=== PATIENT | male | born 1960 | race Caucasian/White ===

== ENCOUNTER 2021-12-20 16:36 | Inpatient (IN) | payer SELFPAY ==
[2021-12-20 18:43] LABS: BASO % 0.4 % (0-2.0); EOS % 0.4 % (0-4.5); HEMATOCRIT 44.7 % (35.4-49); HEMOGLOBIN 15.3 GM/dL (11.7-16.9); LYMPH % 9.5 % (8-40); MCHC 34.2 g/dl (32.0-35.9); MEAN CELL VOLUME 93.6 fl (80-96); MEAN PLT VOLUME 9.2 fl (7.5-11.1); MONO % 5.5 % (3.8-10.2); NEUT % 84.2 % (42.8-82.8); PLATELET COUNT 247 10^3/uL (134-434); RBC 4.78 M/mm3 (4.00-5.60); RDW 13.5 % (11.9-15.9); WHITE BLOOD COUNT 13.5 K/mm3 (4.0-10.0)
[2021-12-20 18:51] LABS: CHLORIDE 108 mmol/L (98-107); SODIUM 139 mmol/L (136-145)
[2021-12-20 18:52] LABS: CALCIUM 9.4 mg/dL (8.5-10.1)
[2021-12-20 18:53] LABS: ALBUMIN 3.9 g/dl (3.4-5.0); ANION GAP 5 MMOL/L (8-16); BLOOD UREA NITROGEN 10.9 mg/dL (7-18); CO2 26 mmol/L (21-32); GLUCOSE,RANDOM 217 mg/dL (74-106)
[2021-12-20 18:56] LABS: CREATININE 0.8 mg/dL (0.55-1.3); SGOT/AST 17 U/L (15-37); SGPT/ALT 29 U/L (13-61)
[2021-12-20 18:58] LABS: BILIRUBIN,TOTAL 0.3 mg/dL (0.2-1); TOT PROT 7.8 g/dl (6.4-8.2)
[2021-12-20 18:59] LABS: ALK PHOS 111 U/L (45-117)
[2021-12-20 21:45] LABS: CHOLESTEROL 162 mg/dL (50-200)
[2021-12-20 21:46] LABS: TRIGLYCERIDES 300 mg/dL (0-150)
[2021-12-20 21:47] LABS: LDL CHOLESTEROL (ONLY SJRH) 80 mg/dL (5-100)
[2021-12-20 21:49] LABS: HDL CHOLESTEROL 38 mg/dL (40-60)
[2021-12-20] MEDS ORDERED: ACETAMINOPHEN 1000 MG/100 ML BAG IVPB PRN (22:04)
[2021-12-21 05:00] VITALS: PULSE 78; BMI 29.1
[2021-12-21 09:08] LABS: BASO % 0.4 % (0-2.0); EOS % 0.4 % (0-4.5); HEMATOCRIT 42.4 % (35.4-49); HEMOGLOBIN 14.4 GM/dL (11.7-16.9); LYMPH % 21.1 % (8-40); MCH 31.8 pg (25.7-33.7); MCHC 33.9 g/dl (32.0-35.9); MEAN CELL VOLUME 93.6 fl (80-96); MEAN PLT VOLUME 9.6 fl (7.5-11.1); MONO % 10.9 % (3.8-10.2); NEUT % 67.2 % (42.8-82.8); PLATELET COUNT 234 10^3/uL (134-434); RBC 4.52 M/mm3 (4.00-5.60); RDW 13.3 % (11.9-15.9); WHITE BLOOD COUNT 8.5 K/mm3 (4.0-10.0)
[2021-12-21 09:26] LABS: MAGNESIUM 1.6 mg/dL (1.8-2.4)
[2021-12-21 09:27] LABS: BLOOD UREA NITROGEN 7.9 mg/dL (7-18); CALCIUM 8.6 mg/dL (8.5-10.1)
[2021-12-21 09:29] LABS: PHOSPHOROUS 2.7 mg/dL (2.5-4.9)
[2021-12-21 09:30] LABS: CREATININE 0.7 mg/dL (0.55-1.3)
[2021-12-21 09:38] LABS: ACTIVATED PTT 30.5 SECONDS (25.2-36.5); INR 1.11 (0.83-1.09); PROTHROMBIN TIME (PATIENT) 12.8 SEC (9.7-13.0)
[2021-12-21 10:23] VITALS: BP 169/97; TEMP 98.6
== END 2021-12-21 14:28 | disposition home or self-care (01) | DRG 342 ==
LOC: JERFT 16:36 → JERBED 19:29 → J8W 12-21 03:53
PROVIDERS: ADMIT Hospitalist; ATTEND Internal Medicine
DX: S82.242A Displaced spiral fracture of shaft of left tibia, initial encounter for closed fracture (principal); S82.442A Displaced spiral fracture of shaft of left fibula, initial encounter for closed fracture; I10 Essential (primary) hypertension; E11.9 Type 2 diabetes mellitus without complications; D72.829 Elevated white blood cell count, unspecified; W19.XXXA Unspecified fall, initial encounter; Y93.9 Activity, unspecified; Y92.89 Other specified places as the place of occurrence of the external cause; Y99.9 Unspecified external cause status
CPT/HCPCS: 36415; 73590-TC-LT-FY; 73610-TC-LT-FY; 73630-TC-LT; 80048; 80053; 80061; 80307; 83036; 83735; 84100; 84439; 84443; 85025; 85610; 85730; 86850; 86900; 86901; 93005; 93010; 97116-GP; 97162-GP; 99285-25; C9803; U0003; U0005

== ENCOUNTER 2021-12-27 10:04 | Day surgery (SDC) | payer OTHER ==
[2021-12-27 10:23] VITALS: BMI 29.0
[2021-12-27 11:09] LABS: INR 1.13 (0.83-1.09)
[2021-12-27 11:12] LABS: ACTIVATED PTT 30.4 SECONDS (25.2-36.5)
[2021-12-27 11:17] LABS: ALBUMIN 3.6 g/dl (3.4-5.0); BILIRUBIN,TOTAL 0.8 mg/dl (0.2-1); CALCIUM 9.2 mg/dl (8.5-10); CREATININE 0.7 mg/dl (0.55-1.3); MAGNESIUM 1.8 mg/dL (1.8-2.4); TOT PROT 7.8 g/dl (6.4-8.2)
[2021-12-27] MEDS: ENOXAPARIN NA (PORCINE) 40 MG/0.4 ML DISP.SYRIN SQ SCH (13:32)
[2021-12-27 14:27] LABS: BASO % 0.7 % (0-2.0); EOS % 0.9 % (0-4.5); HEMATOCRIT 44.6 % (35.4-49); HEMOGLOBIN 15.1 GM/dL (11.7-16.9); LYMPH % 10.3 % (8-40); MCHC 33.8 g/dl (32.0-35.9); MEAN CELL VOLUME 94.8 fl (80-96); MEAN PLT VOLUME 9.7 fl (7.5-11.1); MONO % 10.7 % (3.8-10.2); NEUT % 77.4 % (42.8-82.8); PLATELET COUNT 356 10^3/uL (134-434); RBC 4.71 M/mm3 (4.00-5.60); RDW 13.3 % (11.9-15.9); WHITE BLOOD COUNT 8.9 K/mm3 (4.0-10.0)
[2021-12-27] MEDS: ACETAMINOPHEN 1000 MG/100 ML BAG IVPB SCH ×2 (14:33→18:54)
[2021-12-27] MEDS: INSULIN (NOVOLOG) ASPART 100 UNITS/ML 10ML VIAL SQ SCH ×2 (16:54→22:18)
[2021-12-27] MEDS: oxyCODONE HCL 5 MG TABLET PO PRN ×2 (16:56→22:19)
[2021-12-28] MEDS: ACETAMINOPHEN 1000 MG/100 ML BAG IVPB SCH ×4 (01:13→19:46)
[2021-12-28] MEDS: INSULIN (NOVOLOG) ASPART 100 UNITS/ML 10ML VIAL SQ SCH ×4 (06:20→21:23)
[2021-12-28] MEDS: oxyCODONE HCL 5 MG TABLET PO PRN ×2 (07:26→23:19)
[2021-12-28 08:16] LABS: CALCIUM 9.3 mg/dl (8.5-10); CREATININE 0.7 mg/dl (0.55-1.3)
[2021-12-28] MEDS: ENOXAPARIN NA (PORCINE) 40 MG/0.4 ML DISP.SYRIN SQ SCH (10:16)
[2021-12-28] MEDS: LISINOPRIL 10 MG TABLET PO SCH (10:16)
[2021-12-28 11:23] LABS: EOS % 2.4 % (0-4.5); HEMATOCRIT 43.2 % (35.4-49); HEMOGLOBIN 14.3 GM/dL (11.7-16.9); MCH 31.6 pg (25.7-33.7); MCHC 33.1 g/dl (32.0-35.9); MEAN CELL VOLUME 95.3 fl (80-96); MEAN PLT VOLUME 9.4 fl (7.5-11.1); MONO % 11.7 % (3.8-10.2); NEUT % 65.9 % (42.8-82.8); PLATELET COUNT 381 10^3/uL (134-434); RBC 4.53 M/mm3 (4.00-5.60); RDW 13.4 % (11.9-15.9); WHITE BLOOD COUNT 9.6 K/mm3 (4.0-10.0)
[2021-12-29] MEDS: ACETAMINOPHEN 1000 MG/100 ML BAG IVPB SCH ×2 (01:13→06:47)
[2021-12-29] MEDS: oxyCODONE HCL 5 MG TABLET PO PRN ×2 (06:01→16:32)
[2021-12-29] MEDS: INSULIN (NOVOLOG) ASPART 100 UNITS/ML 10ML VIAL SQ SCH ×4 (06:46→22:04)
[2021-12-29 08:40] LABS: ALBUMIN 3.5 g/dl (3.4-5.0); BILIRUBIN,TOTAL 0.9 mg/dl (0.2-1); CALCIUM 9.4 mg/dl (8.5-10); CREATININE 0.7 mg/dl (0.55-1.3); MAGNESIUM 1.9 mg/dL (1.8-2.4); PHOSPHOROUS 3.5 mg/dl (2.5-4.9)
[2021-12-29 08:58] LABS: BASO % 1.1 % (0-2.0); EOS % 5.4 % (0-4.5); HEMOGLOBIN 14.2 GM/dL (11.7-16.9); LYMPH % 20.5 % (8-40); MCH 31.7 pg (25.7-33.7); MCHC 33.7 g/dl (32.0-35.9); MEAN PLT VOLUME 8.9 fl (7.5-11.1); MONO % 9.8 % (3.8-10.2); NEUT % 63.2 % (42.8-82.8); PLATELET COUNT 413 10^3/uL (134-434); RBC 4.47 M/mm3 (4.00-5.60); RDW 13.1 % (11.9-15.9); WHITE BLOOD COUNT 9.2 K/mm3 (4.0-10.0)
[2021-12-29] MEDS: LISINOPRIL 10 MG TABLET PO SCH (09:39)
[2021-12-29] MEDS: ENOXAPARIN NA (PORCINE) 40 MG/0.4 ML DISP.SYRIN SQ SCH (09:42)
[2021-12-29] MEDS ORDERED: SENNOSIDES 8.6MG TABLET (FP) PO PRN (10:13)
[2021-12-29] MEDS ORDERED: BISACODYL 5 MG TABLET.DR (FP) PO PRN (10:14)
[2021-12-29] MEDS ORDERED: traMADol HCL 50 MG TABLET PO PRN (10:25)
[2021-12-29] MEDS ORDERED: ACETAMINOPHEN 325 MG TABLET (FP) PO PRN (10:26)
[2021-12-29] MEDS: POLYETHYLENE GLYCOL (HEALTHYLAX) 3350 17 GM PACKET PO SCH (11:40)
[2021-12-29] MEDS: DOCUSATE SODIUM 100 MG CAPSULE (FP) PO SCH ×2 (11:40→21:24)
[2021-12-29] MEDS: traMADol HCL 50 MG TABLET PO PRN (21:29)
[2021-12-30] MEDS ORDERED: DEXTROSE 5%-0.45% SALINE 1,000 ML IV SCH
[2021-12-30] MEDS: INSULIN (NOVOLOG) ASPART 100 UNITS/ML 10ML VIAL SQ SCH ×4 (07:05→21:35)
[2021-12-30 08:38] LABS: ALBUMIN 3.5 g/dl (3.4-5.0); BILIRUBIN,TOTAL 0.7 mg/dl (0.2-1); CALCIUM 9.4 mg/dl (8.5-10); CREATININE 0.8 mg/dl (0.55-1.3); TOT PROT 7.3 g/dl (6.4-8.2)
[2021-12-30] MEDS: POLYETHYLENE GLYCOL (HEALTHYLAX) 3350 17 GM PACKET PO SCH (09:57)
[2021-12-30] MEDS: LISINOPRIL 10 MG TABLET PO SCH (09:57)
[2021-12-30] MEDS: DOCUSATE SODIUM 100 MG CAPSULE (FP) PO SCH ×2 (09:57→21:37)
[2021-12-30] MEDS ORDERED: BUPIVACAINE HCL 50 ML ONE (10:14)
[2021-12-30] MEDS ORDERED: BUPIVACAINE HCL/PF 0.5% (5 MG/ML) 30 ML VIAL IJ ONE (10:21)
[2021-12-30] MEDS ORDERED: PROPOFOL 20 ML ONE ×5 (10:28→14:06)
[2021-12-30] MEDS ORDERED: MIDAZOLAM HCL 2 MG/2 ML SINGLE DOSE VIAL ONE ×3 (10:29→11:35)
[2021-12-30] MEDS ORDERED: fentaNYL CITRATE 250 MCG/5 ML VIAL ONE (11:13)
[2021-12-30] MEDS ORDERED: DEXAMETHASONE SOD PHOSPHATE 4 MG/1 ML VIAL ONE ×2 (11:13→14:15)
[2021-12-30] MEDS ORDERED: ONDANSETRON 4 MG/2 ML VIAL ONE ×2 (11:13→14:15)
[2021-12-30] MEDS ORDERED: ROCURONIUM BROMIDE 50 MG/5 ML SYRINGE ONE (11:13)
[2021-12-30] MEDS ORDERED: ceFAZolin SODIUM 1 GM VIAL IVPB ONE (11:30)
[2021-12-30] MEDS ORDERED: ceFAZolin SODIUM 1 GM VIAL ONE ×2 (11:31→19:34)
[2021-12-30] MEDS ORDERED: LIDOCAINE HCL/PF 2% SDV 5ML VIAL ONE (11:40)
[2021-12-30] MEDS ORDERED: SODIUM CHLORIDE 0.9% P/F 10 ML VIAL IJ ONE (12:03)
[2021-12-30] MEDS ORDERED: KETOROLAC TROMETHAMINE 30 MG/1 ML VIAL ONE (14:15)
[2021-12-30] MEDS ORDERED: BUPIVACAINE HCL/PF 0.25% (2.5MG/ML) 10 ML VIAL ONE (14:23)
[2021-12-30] MEDS ORDERED: HYDROmorphone HCL/PF 1 MG/ML VIAL ONE ×2 (14:28→14:29)
[2021-12-30] MEDS ORDERED: BUPIVACAINE HCL/PF 0.25% (2.5MG/ML) 10 ML VIAL IJ ONE (14:43)
[2021-12-30] MEDS ORDERED: oxyCODONE HCL 5 MG TABLET PO PRN ×6 (15:02→18:42)
[2021-12-30] MEDS ORDERED: ONDANSETRON 4 MG/2 ML VIAL IVPUSH PRN ×2 (15:02→15:20)
[2021-12-30] MEDS ORDERED: ACETAMINOPHEN 1000 MG/100 ML BAG IVPB ONE ×2 (15:03→15:20)
[2021-12-30] MEDS ORDERED: ACETAMINOPHEN 325 MG TABLET (FP) PO SCH (15:15)
[2021-12-30] MEDS ORDERED: KETOROLAC TROMETHAMINE 30 MG/1 ML VIAL IVPUSH SCH (15:15)
[2021-12-30] MEDS ORDERED: LACTATED RINGERS SOLUTION 1,000 ML/1,000 ML INFUS.BAG IV SCH (16:00)
[2021-12-30] MEDS: traMADol HCL 50 MG TABLET PO PRN (17:03)
[2021-12-30] MEDS: ACETAMINOPHEN 1000 MG/100 ML BAG IVPB SCH ×2 (17:06→21:37)
[2021-12-30] MEDS ORDERED: KETOROLAC TROMETHAMINE 30 MG/1 ML VIAL IVPUSH ONE (18:43)
[2021-12-30] MEDS ORDERED: DEXTROSE 5%-WATER - 100 ML IVPB ONE (19:34)
[2021-12-30] MEDS: CEFAZOLIN 2 GM in DEXTROSE 5%-WATER - 100 ML IVPB SCH (19:42)
[2021-12-30] MEDS ORDERED: ceFAZolin 2 GRAM PREMIX BAG IVPB SCH (20:00)
[2021-12-31] MEDS: CEFAZOLIN 2 GM in DEXTROSE 5%-WATER - 100 ML IVPB SCH ×2 (04:13→11:29)
[2021-12-31] MEDS: ACETAMINOPHEN 1000 MG/100 ML BAG IVPB SCH ×2 (04:59→11:25)
[2021-12-31] MEDS: INSULIN (NOVOLOG) ASPART 100 UNITS/ML 10ML VIAL SQ SCH ×4 (06:36→21:40)
[2021-12-31] MEDS ORDERED: DOCUSATE SODIUM 100 MG CAPSULE (FP) PO SCH (07:34)
[2021-12-31 08:13] LABS: ALBUMIN 3.1 g/dl (3.4-5.0); BILIRUBIN,TOTAL 0.7 mg/dl (0.2-1); CREATININE 0.7 mg/dl (0.55-1.3); MAGNESIUM 1.8 mg/dL (1.8-2.4); TOT PROT 6.5 g/dl (6.4-8.2)
[2021-12-31] MEDS ORDERED: oxyCODONE HCL 5 MG TABLET PO PRN (08:32)
[2021-12-31] MEDS: ASPIRIN 325 MG TABLET PO SCH ×2 (09:10→21:35)
[2021-12-31] MEDS: oxyCODONE HCL 5 MG TABLET PO PRN ×3 (09:11→21:37)
[2021-12-31] MEDS: SENNOSIDES/DOCUSATE COMBO (SENNA PLUS) TABLET (UD) PO SCH ×2 (09:11→21:36)
[2021-12-31] MEDS: LISINOPRIL 10 MG TABLET PO SCH (09:11)
[2021-12-31] MEDS: POLYETHYLENE GLYCOL (HEALTHYLAX) 3350 17 GM PACKET PO SCH (09:11)
[2021-12-31] MEDS: KETOROLAC TROMETHAMINE 30 MG/1 ML VIAL IVPUSH SCH (09:17)
[2021-12-31] MEDS ORDERED: LISINOPRIL 10 MG TABLET PO SCH (10:00)
[2021-12-31] MEDS ORDERED: SENNOSIDES 8.6MG TABLET (FP) PO SCH ×2 (10:00→22:00)
[2021-12-31] MEDS ORDERED: DEXTROSE 5%-WATER - 100 ML IVPB ONE (11:07)
[2021-12-31] MEDS ORDERED: ceFAZolin SODIUM 1 GM VIAL ONE (11:08)
[2021-12-31 12:29] LABS: BASO % 1.9 % (0-2.0); HEMATOCRIT 37.9 % (35.4-49); HEMOGLOBIN 12.6 GM/dL (11.7-16.9); LYMPH % 17.4 % (8-40); MCH 31.2 pg (25.7-33.7); MCHC 33.3 g/dl (32.0-35.9); MEAN CELL VOLUME 93.5 fl (80-96); NEUT % 68.7 % (42.8-82.8); PLATELET COUNT 414 10^3/uL (134-434); RBC 4.06 M/mm3 (4.00-5.60); WHITE BLOOD COUNT 10.9 K/mm3 (4.0-10.0)
[2021-12-31] MEDS: ACETAMINOPHEN 500 MG TABLET (FP) PO SCH (18:31)
[2021-12-31] MEDS: traMADol HCL 50 MG TABLET PO PRN (18:32)
[2021-12-31] MEDS ORDERED: ACETAMINOPHEN 325 MG TABLET (FP) PO SCH (22:00)
[2022-01-01] MEDS: oxyCODONE HCL 5 MG TABLET PO PRN ×2 (01:54→06:16)
[2022-01-01] MEDS: ACETAMINOPHEN 500 MG TABLET (FP) PO SCH ×3 (01:55→11:52)
[2022-01-01] MEDS: INSULIN (NOVOLOG) ASPART 100 UNITS/ML 10ML VIAL SQ SCH ×2 (06:16→11:51)
[2022-01-01 09:35] VITALS: BP 131/84; PULSE 111; TEMP 97.8
[2022-01-01] MEDS: ASPIRIN 325 MG TABLET PO SCH (09:38)
[2022-01-01] MEDS: LISINOPRIL 10 MG TABLET PO SCH (09:38)
[2022-01-01] MEDS: traMADol HCL 50 MG TABLET PO PRN (09:38)
[2022-01-01] MEDS: POLYETHYLENE GLYCOL (HEALTHYLAX) 3350 17 GM PACKET PO SCH (09:39)
[2022-01-01] MEDS: SENNOSIDES/DOCUSATE COMBO (SENNA PLUS) TABLET (UD) PO SCH (09:39)
[2022-01-01 11:03] LABS: BASO % 1.1 % (0-2.0); EOS % 6.8 % (0-4.5); HEMATOCRIT 36.7 % (35.4-49); HEMOGLOBIN 12.9 GM/dL (11.7-16.9); LYMPH % 16.4 % (8-40); MCH 32.6 pg (25.7-33.7); MEAN CELL VOLUME 93.1 fl (80-96); MEAN PLT VOLUME 8.4 fl (7.5-11.1); NEUT % 64.7 % (42.8-82.8); PLATELET COUNT 388 10^3/uL (134-434); RBC 3.94 M/mm3 (4.00-5.60); RDW 13.1 % (11.9-15.9); WHITE BLOOD COUNT 10.9 K/mm3 (4.0-10.0)
== END 2022-01-01 13:09 | disposition home or self-care (01) ==
LOC: FER 10:04 → FM/S 11:51 → INTOOBSV 11:51 → OBSVTOIN 11:51 → UNDOADMOB 11:51 → EDSTATUS 16:31 → INTOOBSV 12-28 14:11 → OBSVTOIN 12-28 14:11 → FASUSAT 12-30 15:02 → FM/S 12-30 15:02 → SUATTDRO 12-30 15:02 → FASUSAT 01-01 13:09
PROVIDERS: ATTEND Nurse Practitioner Acute Care
PROC: 0QSHXZZ Reposition Left Tibia, External Approach (ICD-10-PCS; principal; 2021-12-30 12:27)
DX: S82.202A Unspecified fracture of shaft of left tibia, initial encounter for closed fracture (principal); S82.402A Unspecified fracture of shaft of left fibula, initial encounter for closed fracture; X58.XXXA Exposure to other specified factors, initial encounter; Y93.9 Activity, unspecified; Y92.9 Unspecified place or not applicable
CPT/HCPCS: 27759; C1713; 36415; 71045-TC-FY; 73590-TC-LT-FY; 73700-TC-RT; 76705-TC; 80048; 80053; 82247; 82962; 83735; 84100; 85025; 85610; 85730; 86705; 86707; 86708; 86850; 86900; 86901; 87350; 87517; 87522; 93005; 94760; 97010-GP; 97116-GP; 97161-GP; 99285-25; C9803; U0003; U0005